=== PATIENT | female | born 1990 | race Two or more races ===

== ENCOUNTER 2021-03-27 10:13 | Outpatient (CLI) | payer OTHER | END 2021-03-27 11:42 | disposition home or self-care (01) | LOC: NST 10:13 | PROVIDERS: ATTEND Obstetrics & Gynecology Maternal & Fetal Medicine | DX: Z34.83 Encounter for supervision of other normal pregnancy, third trimester (principal) ==

== ENCOUNTER 2021-03-30 10:43 | Inpatient (IN) | payer OTHER ==
[~2021-03-30] VITALS: Ht 167.6 cm; Wt 80.7 kg
[2021-04-01] MEDS ORDERED: PRENATAL VITAM1 EAC5 PO (07:44)
== END 2021-04-03 11:16 | disposition home or self-care (01) | DRG 807 ==
LOC: OB/GYN 10:43 → LDR 04-01 06:12 → OB/GYN 04-01 19:30
PROVIDERS: ADMIT Obstetrics & Gynecology; ATTEND Obstetrics & Gynecology
PROC: 10E0XZZ Delivery of Products of Conception, External Approach (ICD-10-PCS; principal; 2021-04-01)
PROC: 0HQ9XZZ Repair Perineum Skin, External Approach (ICD-10-PCS; 2021-04-01)
PROC: 0W8NXZZ Division of Female Perineum, External Approach (ICD-10-PCS; 2021-04-01)
PROC: 4A1HXCZ Monitoring of Products of Conception, Cardiac Rate, External Approach (ICD-10-PCS; 2021-04-01)
PROC: 3E033VJ Introduction of Other Hormone into Peripheral Vein, Percutaneous Approach (ICD-10-PCS; 2021-04-01)
DX: O70.0 First degree perineal laceration during delivery (principal); Z37.0 Single live birth; Z20.822 Contact with and (suspected) exposure to COVID-19; Z3A.40 40 weeks gestation of pregnancy

== ENCOUNTER 2021-03-31 09:46 | Outpatient (CLI) | payer OTHER ==
[2021-04-01] MEDS ORDERED: PRENATAL VITAM1 EAC5 PO (07:44)
== END 2021-03-31 10:26 | disposition home or self-care (01) ==
LOC: NST 09:46
PROVIDERS: ATTEND Obstetrics & Gynecology Maternal & Fetal Medicine
DX: Z34.83 Encounter for supervision of other normal pregnancy, third trimester (principal)

== ENCOUNTER 2023-04-02 12:25 | Inpatient (IN) | payer OTHER ==
[~2023-04-02] VITALS: Ht 167.6 cm; Wt 77.1 kg
[~2023-04-02 12:25] MED LIST: PRENATAL VITAM1 EAC5 PO
[2023-04-21] MEDS ORDERED: OXYTOCIN 500 ML IV ONE (08:15)
[2023-04-21 08:44] LABS: HEMATOCRIT 38.2 % (36.0-45.00); MEAN CORPUSCULAR HEMOGLOBIN 31.6 pg (27.00-32.0); MEAN CORPUSCULAR HGB CONC 33.9 g/dl (32.0-36.0); PLATELET COUNT 353 K/uL (150-450); RED CELL DISTRIBUTION WIDTH 13.3 % (11.5-14.5)
[2023-04-21] MEDS ORDERED: PEPCID AC10 MG PO (09:02)
[2023-04-21 09:03] LABS: INR 0.99; PARTIAL THROMBOPLASTIN TIME 28.5 SECONDS (22.0-34.0); PROTHROMBIN TIME 10.4 SECONDS (9.0-11.5)
[2023-04-21 09:28] LABS: ALBUMIN 3.1 gm/dL (3.4-5.0); BILIRUBIN TOTAL 1.23 mg/dL (0.3-1.2); CREATININE SERUM 0.61 mg/dL (0.55-1.02); GFR 113.66; GLOBULINA 3.6 G/DL (2.4-3.5); POTASSIUM 4.42 mEq/L (3.5-5.1); TOTAL PROTEIN 6.7 gm/dL (6.4-8.2)
[2023-04-21] MEDS ORDERED: ERYTHROMYCIN BASE 1 GM TUBE OP ONE (15:22)
[2023-04-21] MEDS ORDERED: CHLORHEXIDINE GLUCONATE 120 ML BOTTLE TOP ONE (15:22)
[2023-04-21] MEDS ORDERED: OXYTOCIN 20 UNITS/1000ML RL PIGGYBAG IV ONE (15:22)
[2023-04-21] MEDS ORDERED: CEFAZOLIN SODIUM 1,000 MG VIAL ONE (17:01)
[2023-04-21] MEDS ORDERED: CITRIC ACID/SODIUM CITRATE 30 ML BLIST.PACK PO ONE (17:01)
[2023-04-21] MEDS ORDERED: METOCLOPRAMIDE HCL 5 MG/ML VIAL ONE (17:03)
[2023-04-21] MEDS ORDERED: OXYTOCIN 10 UNITS/ML VIAL ONE (17:03)
[2023-04-21] MEDS ORDERED: ERYTHROMYCIN BASE 3.5 GM OINT...G. OP ONE (17:03)
[2023-04-21] MEDS ORDERED: MORPHINE SULFATE 4 MG/ML CARTRIDGE IV SCH (18:53)
[2023-04-21] MEDS ORDERED: KETOROLAC TROMETHAMINE 30 MG VIAL IV SCH (18:54)
[2023-04-21] MEDS ORDERED: KETOROLAC TROMETHAMINE 30 MG VIAL ONE (19:52)
[2023-04-21 20:36] LABS: ABG PH 7.303 (7.35-7.45); ABG PO2 19.6 mmHg (80-100); ABG pCO2 44.4 mmHg (35-45); SaO2 24.5 %
[2023-04-21 20:37] LABS: BASE EXCESS -4.9 mmol/l; BICARBONATE 21.5 mmol/l (23-25); Tco2 22.9 mmol/l; o2 21 %
[2023-04-22] MEDS ORDERED: ACETAMINOPHEN 500 MG GEL..CAP PO SCH (06:00)
[2023-04-22 06:27] LABS: HEMOGLOBIN 11.6 g/dL (12.0-15.00); MEAN CELL VOLUME 94.2 fL (80.00-100.00); MEAN CORPUSCULAR HEMOGLOBIN 32.2 pg (27.00-32.0); MEAN CORPUSCULAR HGB CONC 34.2 g/dl (32.0-36.0); PLATELET COUNT 291 K/uL (150-450); RED BLOOD COUNT 3.61 M/uL (4.00-6.00); RED CELL DISTRIBUTION WIDTH 12.8 % (11.5-14.5)
[2023-04-22] MEDS ORDERED: KETOROLAC TROMETHAMINE 10 MG TABLET PO SCH (07:44)
[2023-04-22] MEDS ORDERED: SIMETHICONE 125 MG CAPSULE PO SCH (09:00)
[2023-04-22] MEDS ORDERED: OxyCODONE HCL/APAP UD (PERCOCET) PO SCH (09:00)
[2023-04-22] MEDS ORDERED: GABAPENTIN 300 MG CAPSULE PO SCH (09:00)
[2023-04-22] MEDS ORDERED: DOCUSATE SODIUM 100MG CAP PO SCH (09:00)
[2023-04-22] MEDS ORDERED: PNV,CALCIUM 72/IRON/FOLIC ACID 1 TAB TABLET PO SCH (09:00)
[2023-04-22] MEDS ORDERED: IBUprofen 600 MG TABLET PO SCH (12:00)
[2023-04-23] MEDS ORDERED: KETO10TA2 PO (07:41)
[2023-04-23] MEDS ORDERED: OXYC1TAB9 PO (07:41)
== END 2023-04-23 13:28 | disposition home or self-care (01) | DRG 788 ==
LOC: LDR 04-21 07:16 → O/R 04-21 17:56 → OB/GYN 04-21 19:05
PROVIDERS: Obstetrics & Gynecology Gynecology; ADMIT Obstetrics & Gynecology Maternal & Fetal Medicine; ATTEND Obstetrics & Gynecology Maternal & Fetal Medicine
PROC: 4A1HXCZ Monitoring of Products of Conception, Cardiac Rate, External Approach (ICD-10-PCS; 2023-04-21)
PROC: 10D00Z1 Extraction of Products of Conception, Low, Open Approach (ICD-10-PCS; principal; 2023-04-21 18:00)
DX: O62.0 Primary inadequate contractions (principal); O64.0XX0 Obstructed labor due to incomplete rotation of fetal head, not applicable or unspecified; O36.8330 Maternal care for abnormalities of the fetal heart rate or rhythm, third trimester, not applicable or unspecified; Z3A.40 40 weeks gestation of pregnancy; Z37.0 Single live birth; Z20.822 Contact with and (suspected) exposure to COVID-19

== ENCOUNTER 2023-04-16 09:34 | Outpatient (CLI) | payer OTHER | END 2023-04-16 10:23 | disposition home or self-care (01) | LOC: NST 09:34 | PROVIDERS: ATTEND Obstetrics & Gynecology Maternal & Fetal Medicine | DX: Z34.83 Encounter for supervision of other normal pregnancy, third trimester (principal) ==